=== PATIENT | male | born 1950 | race Caucasian/White ===

== ENCOUNTER 2019-05-11 14:49 | Inpatient (IN) ==
[2019-05-11] MEDS ORDERED: Methyl Salicylate/Menthol 28 GM TUBE TP PRN (15:52)
[2019-05-12 05:28] LABS: Basophils % 0.8 %; Eosinophils # 0.2 K/mcL (0.0-0.6); Eosinophils % 3.6 %; Hemoglobin 11.4 g/dL (12.9-16.9); Immature Granulocytes % 2.1 % (0-4); Lymphocytes # 1.3 K/mcL (0.6-4.6); Lymphocytes % 23.7 %; Mean Corpuscular HGB Conc 33.5 g/dL (31.6-35.5); Mean Corpuscular Hemoglobin 30.3 pg (28.0-33.3); Mean Corpuscular Volume 90.4 fL (83.0-100.0); Mean Platelet Volume 9.1 fL (9.4-12.4); Monocytes # 0.6 K/mcL (0.0-1.3); Monocytes % 10.6 %; Neutrophils # 3.1 K/mcL (1.6-8.9); Platelet Count 177 K/mcL (140-400); Red Blood Count 3.76 M/mcL (4.19-5.50); Red Cell Distribution Width 12.2 % (11.5-14.5); Segmented Neutrophils % 59.2 %; White Blood Count 5.3 K/mcL (4.3-11.1)
[2019-05-12 05:53] LABS: Calcium 8.3 mg/dL (8.6-10.3); Potassium 4.8 mEq/L (3.5-5.1)
[2019-05-12] MEDS: GlipiZIDE 5 MG TABLET PO SCH (08:59)
[2019-05-12] MEDS: amLODIPine 5 MG TABLET PO SCH (08:59)
--- NOTE | 2019-05-12 18:20 | Internal Med History&Physical ---
Date of Encounter: 05/12/19 Time of Encounter: 17:45 Assessment and Plan (1) Acute kidney injury superimposed on CKD Current visit: No Status: Acute Improved after Weiss catheter insertion. Continue present Rx and monitoring. (2) Hypertension Current visit: No Status: Chronic Continue amlodipine and lisinopril. Qualifiers: Hypertension type: essential hypertension Qualified Code(s): I10 - Essential (primary) hypertension (3) DM2 (diabetes mellitus, type 2) Current visit: No Status: Chronic Continue Glucotrol. Qualifiers: Diabetes mellitus residential insulin use: without dedicated intermodal truck driver use Diabetes mellitus complication status: with kidney complications Diabetes mellitus complication detail: with chronic kidney disease Chronic kidney disease stage: stage 3 (moderate) Qualified Code(s): E11.22 - Type 2 diabetes mellitus with diabetic chronic kidney disease; N18.3 - Chronic kidney disease, stage 3 (moderate) (4) Generalized weakness Current visit: No Status: Acute PT and OT evaluations have been ordered. Internal Medicine - H&P: HPI Chief complaint: Urinary retention Admitted From: Hospital to Hospital Transfer Plans for Post Hospital Care: Home History of present illness: Mr. Conde is a 69 year old male was hospitalized at [facility] May 06- after presenting with urinary obstruction. He was seen by urology and nephrology. Weiss catheter was inserted. He was discharged to [facility] swing bed for rehabilitation therapy prior to returning to independent living. history is pertinent for known BPH in the past. He also has chronic kidney disease and will follow up with nephrology. He denies other known kidney bladder prostate disorders. Past Med Surg Social Fam HX - Past Medical History Medical history: diabetes, hyperlipidemia, hypertension, renal disease Psychiatric history: no psych history - Past Surgical History Surgical History: non-contributory - Social History Smoking Status: Never smoker Smokeless Tobacco Status: No Alcohol use: none Drug use: none - Family History Mother Adopted: No Hx Family Endocrine Disorder: Yes (Diabetes) Father Hx Family Endocrine Disorder: Yes (Diabetes) Internal Medicine - H&P: Meds Atorvastatin [Lipitor] 40 mg PO HS #30 tablet 05/11/19 [Rx] Ciprofloxacin [Cipro] 500 mg PO Q12HR 9 Days #18 tablet 05/11/19 [Rx] GlipiZIDE [Glucotrol] 10 mg PO 0800 tablet 05/11/19 [Rx] Lisinopril [Zestril] 5 mg PO DAILY #30 tablet 05/11/19 [Rx] Methyl Salicylate/Menthol [Bengay] 1 appl TP BID PRN #2 tube 05/11/19 [Rx] amLODIPine [Norvasc] 5 mg PO DAILY #30 tablet 05/11/19 [Rx] Allergy/AdvReac Type Severity Reaction Status Date / Time No Known Allergies Allergy Verified 05/07/19 16:54 All Systems PM: A 10-system review of systems was performed and is negative for pertinent findings except as documented above in the HPI. Review of systems: Gen.: He states his weight has been stable for several years Cardiovascular: He has history of hypertension but denies MN heart failure angina DVT or pulmonary embolus Respiratory: He is a lifelong nonsmoker denies chronic lung disease GI: He denies disorders of his liver gallbladder or exocrine pancreas : As per history of present illness Neurologic: He denies large distribution strokes or seizures. Endocrine: He was diagnosed with DM 2 approximately 2006. He has hyperlipidemia but denies known thyroid disease. Hematology/oncology: He has anemia but denies internal malignancies or blood disorders Psychiatric: He denies anxiety depression or other mental health issues Musko skeletal: He denies arthritis gout or other bone joint or muscle disorders. - Constitutional Vitals: Temp Pulse Resp BP Pulse Ox 98.4 F 68 19 134/88 98 05/12/19 08:49 05/12/19 08:49 05/12/19 08:49 05/12/19 08:49 05/12/19 08:49 Exam: Gen.: He is a well-developed well-nourished male lying in bed who appears in no acute distress HEENT: Head is atraumatic and normocephalic. Eyes: EOMI. There is no scleral icterus. Mouth: Mucosa is moist. Neck: Supple and nontender. There is no thyromegaly or adenopathy noted. Heart: Regular without murmurs gallops or ectopics Lungs: No wheezes or crackles are heard. Abdomen: Soft and nontender. No masses or guarding are noted. Extremities: There is no cyanosis edema or clubbing noted. Dorsalis pedis and posterior tibial pulses are trace palpable bilaterally. Neurologic: Mental status: He is talkative and a fair to good historian. Cranial nerves: Smile is symmetric. For crackles bilaterally. Tongue protrudes midline. EOMI. Motor: There is no pronator drift. Cerebellar: Finger to nose is intact bilaterally. Skin: Warm and dry Internal Med - H&P Results - Labs CBC & Chem 7: 05/12/19 04:31 05/12/19 04:31 Labs: Short CBC 05/12/19 Range/Units 04:31 WBC 5.3 (4.3-11.1) K/mcL Hgb 11.4 L (12.9-16.9) g/dL Hct 34.0 L (37.5-50.1) % Plt Count 177 (140-400) K/mcL Neutrophils # 3.1 (1.6-8.9) K/mcL BMP 05/12/19 04:31 Sodium 134 L Potassium 4.8 Chloride 105 Carbon Dioxide 23 BUN 39 H Creatinine 1.99 H Glucose 216 H Calcium 8.3 L
[2019-05-13] MEDS: amLODIPine 5 MG TABLET PO SCH (09:03)
[2019-05-13] MEDS: GlipiZIDE 5 MG TABLET PO SCH (09:03)
[2019-05-13] MEDS ORDERED: *HR* Dextrose 50 % in Water (Syg) 50 ML SYRINGE IVP PRN (13:13)
[2019-05-13] MEDS ORDERED: D5% in Water 1,000 ML IVC PRN (13:13)
[2019-05-13] MEDS ORDERED: Dextrose Gel 15 GM/37.5 ML TUBE PO PRN ×2 (13:13)
[2019-05-13] MEDS: Insulin LISPRO 300 UNITS/3 ML VIAL SQ SCH ×3 (13:44→21:38)
--- NOTE | 2019-05-13 19:21 | Internal Med Progress Note ---
Date of Encounter: 05/13/19 Time of Encounter: 17:15 - Assessment and plan (1) Acute kidney injury superimposed on CKD Current Visit: No Status: Acute Assessment and plan: May 13. Creatinine 1.99 yesterday. Check in a.m. (2) Hypertension Current Visit: No Status: Chronic Assessment and plan: May 13. Blood pressure show significant fluctuation. Continue amlodipine and lisinopril. Qualifiers: Hypertension type: essential hypertension Qualified Code(s): I10 - Essent ial (primary) hypertension (3) DM2 (diabetes mellitus, type 2) Current Visit: No Status: Chronic Assessment and plan: May 13. Hemoglobin A1c was 10.0% on 05/07/2019. Continue Glucotrol and Accu-Cheks with SSI. 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 Continue PT/OT intervention. (5) Anemia Current Visit: No Status: Acute Assessment and plan: May 13. Anemia testing 05/07/2019 showed iron 28, transferrin saturation 20%, transferrin 101, ferritin > 1500, B12 1290, and folate 8.1. Qualifiers: Anemia type: due to chronic kidney disease Chronic kidney disease stage: stage 3 (moderate) Qualified Code(s): N18.3 - Chronic kidney disease, stage 3 (moderate); D63.1 - Anemia in chronic kidney disease - Subjective Interval history: May 13. He has no new complaints. - Constitutional Vitals: Temp Pulse Resp BP Pulse Ox 98.9 F 72 20 166/73 98 05/13/19 07:00 05/13/19 07:00 05/13/19 07:00 05/13/19 07:00 05/13/19 07:00 Exam: He is resting comfortably in bed and appears in no acute distress. His affect is bright and cheerful. I reviewed his medications and lab results. Internal Medicine: Result - Labs CBC & Chem 7: 05/12/19 04:31 05/12/19 04:31 Consult Discharge Plan - Plan Referrals: Karen Alas DO [Primary Care Provider] - 1 week
[2019-05-14] MEDS: amLODIPine 5 MG TABLET PO SCH (10:23)
[2019-05-14] MEDS: GlipiZIDE 5 MG TABLET PO SCH (10:23)
[2019-05-14] MEDS: Insulin LISPRO 300 UNITS/3 ML VIAL SQ SCH ×4 (10:26→22:48)
--- NOTE | 2019-05-14 11:57 | Discharge Summary ---
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 Diabetes mellitus complication status: with kidney complications Diabetes mellitus complication detail: with chronic kidney disease Chronic kidney disease stage: stage 3 (moderate) Qualified Code(s): E11.22 - Type 2 diabetes mellitus with diabetic chronic kidney disease; N18.3 - Chronic kidney disease, stage 3 (moderate) (4) Generalized weakness Priority: Secondary Status: Acute (5) Anemia Priority: Secondary Status: Acute Qualifiers: Anemia type: due to chronic kidney disease Chronic kidney disease stage: stage 3 (moderate) Qualified Code(s): N18.3 - Chronic kidney disease, stage 3 (moderate); D63.1 - Anemia in chronic kidney disease Hospital course: Mr. Conde is a 69 year old male who was hospitalized at [facility] May 06- after presenting with urinary obstruction. He was seen by urology and nephrology. Weiss catheter was inserted. He was discharged to [facility] swing bed for rehabilitation therapy prior to returning to independent living. history is pertinent for known BPH in the past. He also has chronic kidney disease and will follow up with nephrology. He denies other known kidney bladder prostate disorders. Initial orders were written by the is charging physicians at [facility]. I saw him on May 12 and performed a history and physical. He had physical therapy and occupational therapy evaluation ongoing intervention. He made satisfactory progress. Blood sugars showed significant fluctuation. Hemoglobin A1c returned elevated 10.0% on 05/07/2019 during his [facility] stay. He will continue present dose of glipizide. Januvia will be added to improve blood sugar control. The patient repeatedly stated he did not feel he needed to be in swing bed for ongoing therapy. On May 14 he stated he was leaving to go home. He will follow with his PCP Dr. Karen Alas within 1 week. - Time Spent with Patient Total time spent providing and/or coordinating discharge services: - Discharge Medications Prescriptions: New SitaGLIPtin [Januvia] 25 mg PO DAILY #30 tablet Continued Methyl Salicylate/Menthol [Bengay] 1 appl TP BID PRN #2 tube PRN Reason: Pain Ciprofloxacin [Cipro] 500 mg PO Q12HR 9 Days #18 tablet Atorvastatin [Lipitor] 40 mg PO HS #30 tablet amLODIPine [Norvasc] 5 mg PO DAILY #30 tablet Lisinopril [Zestril] 5 mg PO DAILY #30 tablet GlipiZIDE [Glucotrol] 10 mg PO 0800 tablet Home Medications: Atorvastatin [Lipitor] 40 mg PO HS #30 tablet 05/11/19 [Rx] Ciprofloxacin [Cipro] 500 mg PO Q12HR 9 Days #18 tablet 05/11/19 [Rx] GlipiZIDE [Glucotrol] 10 mg PO 0800 tablet 05/11/19 [Rx] Lisinopril [Zestril] 5 mg PO DAILY #30 tablet 05/11/19 [Rx] Methyl Salicylate/Menthol [Bengay] 1 appl TP BID PRN #2 tube 05/11/19 [Rx] amLODIPine [Norvasc] 5 mg PO DAILY #30 tablet 05/11/19 [Rx] SitaGLIPtin [Januvia] 25 mg PO DAILY #30 tablet 05/14/19 [Rx] Allergies/Adverse Reactions: Allergy/AdvReac Type Severity Reaction Status Date / Time No Known Allergies Allergy Verified 05/07/19 16:54 Date of admission: 05/11/19 15:57 Primary care physician: Jana Campbell Consults: 05/11/19 15:18 Consult to Cco [CONS] Routine Reason for SW Consult: discharge planning 05/11/19 16:01 Consult to Physical Therapy [CONS] Routine Comment: Evaluate, develop and implement POC Reason for Consult: weakness Does patient have active BEDREST order?: No Is patient medically & hemodynamically stable?: Yes Patient assessed for mobility or mobilized this visit?: No OT [Consult to Occupational Therapy] [CONS] Routine Comment: Evaluate, develop and implement POC Reason for Consult: weakness Does patient have active BEDREST order?: No Is patient medically & hemodynamically stable?: Yes Patient assessed for mobility or mobilized this visit?: No - Constitutional Vitals: Temp Pulse Resp BP Pulse Ox 98.2 F 92 16 133/78 98 05/14/19 07:15 05/14/19 10:20 05/14/19 07:15 05/14/19 10:20 05/14/19 10:20 - Patient Status Disposition: Home, Self-Care - Discharge Instructions Follow Up With: Karen Alas DO [Primary Care Provider] - 1 week - Diet and Activity Activity: as per physical therapy Diet: diabetic diet
--- NOTE | 2019-05-14 12:24 | Physician Discharge Referral ---
Home Health/Hosp Referral Info Transfer to: Home Health Attending Provider: Thom Provider in Charge Post Discharge: PCP Yasmin) - Diagnosis (1) Acute kidney injury superimposed on CKD Priority: Primary Status: Acute (2) Hypertension Priority: Secondary Status: Chronic (3) DM2 (diabetes mellitus, type 2) Priority: Secondary Status: Chronic (4) Generalized weakness Priority: Secondary Status: Acute (5) Anemia Priority: Secondary Status: Acute - Respiratory Orders Smoking Cessation: Smoking cessation has been advised. For more information, call the [employer] Quit Line at [phone]-PDML-NOW. - Diet/Nutrition Diet/Nutrition Orders: No Concentrated Sweets - Activity Activity Orders: Walker - Services Needed Following services are medically necessary services: Nursing, Home Health Aide, Physical Therapy, Occupational Therapy - Transfer Medications Prescriptions: SitaGLIPtin [Januvia] 25 mg PO DAILY #30 tablet Home Medications: Atorvastatin [Lipitor] 40 mg PO HS #30 tablet 05/11/19 [Rx] Ciprofloxacin [Cipro] 500 mg PO Q12HR 9 Days #18 tablet 05/11/19 [Rx] GlipiZIDE [Glucotrol] 10 mg PO 0800 tablet 05/11/19 [Rx] Lisinopril [Zestril] 5 mg PO DAILY #30 tablet 05/11/19 [Rx] Methyl Salicylate/Menthol [Bengay] 1 appl TP BID PRN #2 tube 05/11/19 [Rx] amLODIPine [Norvasc] 5 mg PO DAILY #30 tablet 05/11/19 [Rx] SitaGLIPtin [Januvia] 25 mg PO DAILY #30 tablet 05/14/19 [Rx] Allergies/Adverse Reactions: Allergy/AdvReac Type Severity Reaction Status Date / Time No Known Allergies Allergy Verified 05/07/19 16:54 Certification: Further, I certify that my clinical findings support that this patient is homebound (i.e. absences from home require considerable and taxing effort and are for medical reasons or pentec[employer] services or infrequently or short duration when for other reasons) because: Homebound Reason: Leaving home requires considerable and taxing effort due to condition (Impaired walking ability, medication adjustment) Attestation: My signature below is to certify that this patient is under my care and that I, or nurse practitioner, or a physician's learning and development assistant working with me, has a [id number] encounter with this patient.
[2019-05-15 07:00] VITALS: BP 139/76
[2019-05-15] MEDS: amLODIPine 5 MG TABLET PO SCH (09:45)
[2019-05-15] MEDS: Insulin LISPRO 300 UNITS/3 ML VIAL SQ SCH (09:46)
[2019-05-15] MEDS: GlipiZIDE 5 MG TABLET PO SCH (09:46)
== END 2019-05-15 11:20 | disposition home or self-care (01) | DRG 684 ==
LOC: INPPIK 15:57
PROVIDERS: ADMIT Internal Medicine; ATTEND Internal Medicine